=== PATIENT | female | born 1950 | race Caucasian/White ===

== ENCOUNTER 2017-03-14 08:29 | Inpatient (IN) | payer MEDICAID ==
[~2017-03-14] VITALS: Ht 142.2 cm; Wt 70.7 kg
[2017-03-14] MEDS ORDERED: SOD CHLORIDE 0.9% 1,000 ML IV STA (08:44)
[2017-03-14 09:08] LABS: ADD SCAN DIFF NO
[2017-03-14 09:10] LABS: ABNORMAL IP MESSAGE 1; BASOPHILS % 0.5 % (0.0-2.0); EOSINOPHILS % 0.3 % (0.0-7.0); HEMATOCRIT 29.4 % (37.0-47.0); HEMOGLOBIN 8.9 g/dl (12.0-16.0); LYMPHOCYTES # 0.3 10^3/ul (0.8-2.9); LYMPHOCYTES % 9.1 % (15.0-51.0); MEAN CORPUSCULAR HEMOGLOBIN 23.5 pg (29.0-33.0); MEAN CORPUSCULAR HGB CONC 30.3 g/dl (32.0-37.0); MEAN CORPUSCULAR VOLUME 77.6 fl (82.0-101.0); MONOCYTE # 0.3 10^3/ul (0.3-0.9); NEUTROPHIL # 3.1 10^3/ul (1.6-7.5); NEUTROPHILS % 82.6 % (39.0-77.0); PLATELET COUNT 108 10^3/UL (140-415); RED BLOOD COUNT 3.79 10^6/ul (4.20-5.40); RED CELL DISTRIBUTION WIDTH 21.4 % (11.5-14.5); WHITE BLOOD COUNT 3.7 10^3/ul (4.8-10.8)
[2017-03-14 09:29] LABS: INR 1.33; PARTIAL THROMBOPLASTIN TIME 36.9 Sec (25.0-35.0); PROTIME 16.6 Sec (12.2-14.2); PT RATIO 1.3
--- NOTE | 2017-03-14 09:35 | RADRPT ---
PROCEDURE: CT Brain without contrast. CLINICAL INDICATION: Altered mental status TECHNIQUE: Routine CT scan of the brain was performed on a high resolution multi detector scanner without intravenous contrast. One or more of the following dose reduction techniques were used: Auto mated exposure control; Adjustment of the mA and/or kV according to patient size; Use of iterative r econstruction technique. CTDI = 45 mGy. DLP = 720 mGy-cm. COMPARISON: No prior relevant examinations are available for comparison. FINDINGS: Hemorrhage: No evidence of intracranial hemorrhage. Acute ischemic changes: No evidence of acute ischemic changes. Mass effect/Midline shift: None. Parenchymal volume: Within normal limits for age. Ventricular system: Concordant with parenchymal volume. Chronic changes: There are multiple areas of low attenuation change within the supratentorial white matter most compatible with moderate chronic microvascular ischemic changes. Most inferior portion o f the left middle cranial fossa is outside of the field of view with possible small area of encephal omalacia involving the basal - anterior left temporal lobe. Atherosclerotic calcifications of the cavernous portions of both internal carotid arteries are prese nt. Extracranial soft tissues: Unremarkable. Calvarium: No fractures. 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 Mastoid air cells: Visualized mastoid air cells are clear. IMPRESSION: No acute intracranial abnormalities. Most inferior portion of the left middle cranial fossa is outside of the field of view with possible small area of encephalomalacia involving the basal - anterior left temporal lobe. Moderate chronic-appearing microvascular ischemic changes of the supratentorial white matter; MRI of the brain can be obtained for further evaluation if clinical suspicion of acute ischemic changes. 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 Recommend CT scan of the sinuses for further evaluation. RPTAT: AADD .Marco A Valverde MD, Date Time Electronically viewed and signed by .Marco A Valverde MD, MD on 03/14/2017 09:35 .B/
[2017-03-14 09:38] LABS: ALBUMIN 3.4 g/dl (3.3-4.9); ALBUMIN/GLOBULIN RATIO 0.7; BILIRUBIN,INDIRECT 1.3 mg/dl (0-1.1); BILIRUBIN,TOTAL 1.3 mg/dl (0.2-1.3); CALCIUM 8.6 mg/dl (8.4-10.2); CREATININE 0.99 mg/dl (0.44-1.00); POTASSIUM 4.6 mmol/L (3.5-5.1); TOTAL PROTEIN 8.2 g/dl (6.1-8.1)
--- NOTE | 2017-03-14 09:53 | RADRPT ---
PROCEDURE: XR Chest 1 View. CLINICAL INDICATION: Abnormal breath sounds, altered mental status. TECHNIQUE: AP view of the chest was obtained. COMPARISON: None. FINDINGS: The cardiomediastinal silhouette is within normal limits. The lungs are hypoinflated. Atelectasis i s identified in the left upper lobe and scattered throughout the right lung. No consolidations are i dentified. No pneumothorax is seen. Osseous structures are intact. IMPRESSION: Hypoinflated lungs. Atelectasis throughout the right lung and in the left upper lobe. RPTAT: AA .Geoffrey Frankel MD, Date Time Electronically viewed and signed by .Geoffrey Frankel MD, on 03/14/2017 09:52 .P/
[2017-03-14] MEDS ORDERED: FURO40TA4 PO (10:24)
[2017-03-14] MEDS ORDERED: LACT20SO2 PO (10:24)
[2017-03-14] MEDS ORDERED: LANT3I SC (10:25)
[2017-03-14] MEDS ORDERED: OMEP20CA16 PO (10:25)
[2017-03-14] MEDS ORDERED: SPIR100T31 PO (10:25)
[2017-03-14] MEDS ORDERED: SYN1 PO (10:26)
[2017-03-14] MEDS ORDERED: LORAZEPAM 2 MG INJ IV ONE ×2 (10:30→12:30)
[2017-03-14 10:31] LABS: ADD UMIC YES; UR ASCORBIC ACID NEGATIVE (NEGATIVE); UR BACTERIA FEW /HPF (NONE SEEN); UR BILIRUBIN (Dip) NEGATIVE (NEGATIVE); UR BLOOD (Dip) 2+ mg/dL (NEGATIVE); UR CLARITY CLEAR (CLEAR); UR COLOR YELLOW (YELLOW); UR GLUCOSE (Dip) NEGATIVE (NEGATIVE); UR KETONES (Dip) NEGATIVE (NEGATIVE); UR LEUKOCYTE ESTERASE (Dip) NEGATIVE Leu/ul (NEGATIVE); UR NITRITE (Dip) NEGATIVE (NEGATIVE); UR RBC 39 /HPF (0-5); UR TOTAL PROTEIN (Dip) NEGATIVE (NEGATIVE); UR UROBILINOGEN (Dip) NEGATIVE (NEGATIVE)
[2017-03-14 10:59] LABS: BARBITURATES Negative (NEGATIVE); BENZODIAZEPINES Negative (NEGATIVE); CANNABINOIDS Negative (NEGATIVE); COCAINE Negative (NEGATIVE); OPIATES Negative (NEGATIVE)
[2017-03-14] MEDS ORDERED: LACTULOSE 30ML CUP PO ONE (11:30)
[2017-03-14] MEDS ORDERED: SOD CHLORIDE 0.9% 1,000 ML IV SCH (11:55)
[2017-03-14] MEDS ORDERED: ACETAMINOPHEN 325 MG TAB PO PRN (12:00)
[2017-03-14] MEDS ORDERED: ONDANSETRON 4 MG INJ IV PRN ×2 (12:00→18:00)
--- NOTE | 2017-03-14 12:00 | ERA ---
ER Documentation Chief Complaint Date/Time DATE: 03/14/17 TIME: 11:56 Chief Complaint aloc from home, last since normal was last night before bedtime. HPI This is a 66-year-old female who was last seen normal last night at 10 PM. The patient's family states that she has liver cirrhosis numbness and has not been taking her lactulose and other medications like she supposed to be. Patient was found late this morning and altered mental status. Patient seemed confused and did not recognize her family. The family says this is happened before. Says she has been in relatively good health as of late besides her typical cirrhosis. Deny her having any fever vomiting diarrhea or other illness. ROS All systems reviewed and are negative except as per history of present illness. Medications Home Meds Reported Medications Levothyroxine Sodium* (Synthroid*) 100 Mcg Tablet, 100 MCG PO BEFORE BREAKFAST, #30 TAB 03/14/17 Insulin Glargine* (Lantus*) 100 Unit/Ml Soln, 10 UNIT SC QHS, #1 VIAL 03/14/17 Omeprazole* (Omeprazole*) 20 Mg Capsule.dr, 20 MG PO BID, #60 CAP 03/14/17 Spironolactone* (Spironolactone*) 100 Mg Tablet, 100 MG PO BID, TAB 03/14/17 Lactulose* (Lactulose*) 20 Gm/30 Ml Solution, 20 GM PO BID, ML 03/14/17 Furosemide* (Furosemide*) 40 Mg Tablet, 40 MG PO BID, TAB 03/14/17 Allergies Allergies: Coded Allergies: No Known Allergy (Unverified , 03/14/17) FmHx Unable to obtain due to mental status Physical Exam Vitals Vital Signs Date Time Temp Pulse Resp B/P Pulse Ox O2 Delivery O2 Flow Rate FiO2 03/14/17 11:30 88 18 101/62 100 Nasal Cannula 2.0 03/14/17 09:30 94 19 135/81 100 Room Air 03/14/17 08:39 97.5 88 20 174/138 95 Physical Exam Const: Well-developed, well-nourished Head: Atraumatic, normocephalic Eyes: Normal Conjunctiva, PERRLA, EOMI, normal sclera, no nystagmus ENT: Normal External Ears, Nose and Mouth, moist mucus membranes. Neck: Full range of motion. No meningismus, no lymphadenopathy. Resp: Clear to auscultation bilaterally, no wheezing, rhonchi, rales Cardio: Regular rate and rhythm, no murmurs, S1 S2 present Abd: Soft, non tender x 4, non, obese central core , normal bowel sounds, no guarding or rebound, no pulsitile abdominal masses or bruits Skin: No petechiae or rashes, no ecchymosis , no maculopapular rash Back: No midline or flank tenderness Ext: No cyanosis, or edema, FROM x 4, normal inspection, neurovascularly intact x 4 Neur: Awake and alert, somewhat combative does not follow commands STR 5 /5 x 4, sensation intact x 4, no focal findings, cerebellum intact Psych: Unable to obtain Result Diagram: 03/14/1784903/14/1750 Results 24 hrs Laboratory Tests Test 03/14/17 08:49 03/14/17 08:50 03/14/17 10:12 Bedside Glucose 221mg/dL White Blood Count 3.710^3/ul Red Blood Count 3.7910^6/ul Hemoglobin 8.9g/dl Hematocrit 29.4% Mean Corpuscular Volume 77.6fl Mean Corpuscular Hemoglobin 23.5pg Mean Corpuscular Hemoglobin Concent 30.3g/dl Red Cell Distribution Width 21.4% Platelet Count 52555^3/UL Mean Platelet Volume 10.0fl Neutrophils % 82.6% Lymphocytes % 9.1% Monocytes % 7.0% Eosinophils % 0.3% Basophils % 0.5% Nucleated Red Blood Cells % 0.0/100WBC Neutrophils # 3.110^3/ul Lymphocytes # 0.310^3/ul Monocytes # 0.310^3/ul Eosinophils # 0.010^3/ul Basophils # 0.010^3/ul Nucleated Red Blood Cells # 0.010^3/ul Prothrombin Time 16.6Sec Prothrombin Time Ratio 1.3 INR International Normalized Ratio 1.33 Activated Partial Thromboplast Time 36.9Sec Sodium Level 137mmol/L Potassium Level 4.6mmol/L Chloride Level 101mmol/L Carbon Dioxide Level 21mmol/L Anion Gap 20 Blood Urea Nitrogen 24mg/dl Creatinine 0.99mg/dl Glucose Level 214mg/dl Calcium Level 8.6mg/dl Total Bilirubin 1.3mg/dl Direct Bilirubin 0.00mg/dl Indirect Bilirubin 1.3mg/dl Aspartate Amino Transf (AST/SGOT) 53IU/L Alanine Aminotransferase (ALT/SGPT) 38IU/L Alkaline Phosphatase 340IU/L Ammonia 117umol/l Total Protein 8.2g/dl Albumin 3.4g/dl Globulin 4.80g/dl Albumin/Globulin Ratio 0.70 Urine Color YELLOW Urine Clarity CLEAR Urine pH 8.0 Urine Specific [place] 1.010 Urine Ketones NEGATIVEmg/dL Urine Nitrite NEGATIVEmg/dL Urine Bilirubin NEGATIVEmg/dL Urine Urobilinogen NEGATIVEmg/dL Urine Leukocyte Esterase NEGATIVELeu/ul Urine Microscopic RBC 39/HPF Urine Microscopic WBC 1/HPF Urine Bacteria FEW/HPF Urine Hemoglobin 2+mg/dL Urine Glucose NEGATIVEmg/dL Urine Total Protein NEGATIVEmg/dl Urine Opiates Screen Negative Urine Barbiturates Negative Urine Amphetamines Screen Negative Urine Benzodiazepines Screen Negative Urine Cocaine Screen Negative Urine Cannabinoids Negative Current Medications Medications (Trade) Dose Ordered Sig/Cirilo Route PRN Reason Start Time Stop Time Status Last Admin Dose Admin Sodium Chloride (NS) 1,000 ml @ 1,000 mls/hr Q1H STAT IV 03/14/17 08:44 03/14/17 09:43 DC 03/14/17 09:43 Lorazepam (Ativan) 0.5 mg ONCE ONCE IV 03/14/17 10:30 03/14/17 10:31 DC 03/14/17 10:17 Lactulose (Enulose) 20 gm ONCE ONCE PO 03/14/17 11:30 03/14/17 11:47 DC Procedures/MDM PROCEDURE: CT Brain without contrast. CLINICAL INDICATION: Altered mental status TECHNIQUE: Routine CT scan of the brain was performed on a high resolution multi detector scanner without intravenous contrast. One or more of the following dose reduction techniques were used: Automated exposure control; Adjustment of the mA and/or kV according to patient size; Use of iterative reconstruction technique. CTDI = 45 mGy. DLP = 720 mGy-cm. COMPARISON: No prior relevant examinations are available for comparison. FINDINGS: Hemorrhage: No evidence of intracranial hemorrhage. Acute ischemic changes: No evidence of acute ischemic changes. Mass effect/Midline shift: None. Parenchymal volume: Within normal limits for age. Ventricular system: Concordant with parenchymal volume. Chronic changes: There are multiple areas of low attenuation change within the supratentorial white matter most compatible with moderate chronic microvascular ischemic changes. Most inferior portion of the left middle cranial fossa is outside of the field of view with possible small area of encephalomalacia involving the basal - anterior left temporal lobe. Atherosclerotic calcifications of the cavernous portions of both internal carotid arteries are present. Extracranial soft tissues: Unremarkable. Calvarium: No fractures. 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 Mastoid air cells: Visualized mastoid air cells are clear. IMPRESSION: No acute intracranial abnormalities. Most inferior portion of the left middle cranial fossa is outside of the field of view with possible small area of encephalomalacia involving the basal - anterior left temporal lobe. Moderate chronic-appearing microvascular ischemic changes of the supratentorial white matter; MRI of the brain can be obtained for further evaluation if clinical suspicion of acute ischemic changes. 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 Recommend CT scan of the sinuses for further evaluation. RPTAT: AADD .Marco A Valverde MD, MD Date Time Electronically viewed and signed by .Marco A Valverde MD, MD on 03/14/2017 09:35 .B/ CC: ASHLI HURD DO PROCEDURE: XR Chest 1 View. CLINICAL INDICATION: Abnormal breath sounds, altered mental status. TECHNIQUE: AP view of the chest was obtained. COMPARISON: None. FINDINGS: The cardiomediastinal silhouette is within normal limits. The lungs are hypoinflated. Atelectasis is identified in the left upper lobe and scattered throughout the right lung. No consolidations are identified. No pneumothorax is seen. Osseous structures are intact. IMPRESSION: Hypoinflated lungs. Atelectasis throughout the right lung and in the left upper lobe. RPTAT: AA .Geoffrey Frankel MD, MD Date Time Electronically viewed and signed by .Geoffrey Frankel MD, on 03/14/2017 09:52 .P/ CC: ASHLI HURD DO Patient was found to have an elevated ammonia of 117. This is the cause of her altered mental status. Patient was given Ativan to calm her down. We will admit her to the hospital for further lactulose or neomycin therapy. Departure Diagnosis: Primary Impression: Hyperammonemia Condition: ASHLI Mendenhall DO Mar 14, 2017 12:00
--- NOTE | 2017-03-14 14:14 | RADRPT ---
PROCEDURE: XR Chest 1 View. CLINICAL INDICATION: Chest pain and trauma. TECHNIQUE: AP view of the chest was obtained. COMPARISON: March 14, 2017 at 09:30 a.m. FINDINGS: The cardiomediastinal silhouette is within normal limits. The lungs are hypoinflated. Elevation of the right hemidiaphragm is observed. Atelectasis is noted at the lung bases. No consolidations are identified. No pneumothorax is seen. Nasogastric tube has its distal end in the expected location o f the stomach. The osseous structures appear grossly intact. IMPRESSION: No visualized traumatic injury. Hypoinflated lungs with elevation of the right hemidiaphragm. Atelectasis at the lung bases. If there is high clinical suspicion for traumatic injury, further evaluation with CT should be consi dered. RPTAT: AA .Geoffrey Frankel MD, Date Time Electronically viewed and signed by .Geoffrey Frankel MD, on 03/14/2017 14:14 .P/
--- NOTE | 2017-03-14 14:26 | RADRPT ---
PROCEDURE: XR Chest. CLINICAL INDICATION: Assess NG tube placement. TECHNIQUE: Single frontal view of the chest was obtained. COMPARISON: None FINDINGS: The soft tissues are generous. An NG tube is positioned with its tip well distal to the GE junction in the stomach. There are degenerative osteophytes in the thoracic spine. The heart is upper limi ts of normal for size. The cardiomediastinal silhouette and hilar structures are normal. The pulmon sofiya vasculature is equilibrated. There is a left-sided aorta. The right diaphragm is elevated. The re is vascular crowding from the poor inspiration. The costophrenic angles are normal. IMPRESSION: 1. Satisfactory positioning of an NG tube distal to the GE junction. 2. Suboptimal inspiration with compressive atelectasis in the lungs. RPTAT:AAJJ Physician Selina Date Time Electronically viewed and signed by Physician Selina on 03/14/2017 14:25 GOSIA/
[2017-03-14 15:30] VITALS: TEMP 98
[2017-03-14 16:50] VITALS: Ht 142.2 cm; Wt 70.7 kg
[2017-03-14 16:54] VITALS: BP 110/58; PULSE 81; RESP 20
[2017-03-14] MEDS ORDERED: SOD CHLORIDE 0.45% 1,000 ML IV SCH (17:53)
--- NOTE | 2017-03-14 17:55 | HP ---
Date/Time of Note Date/Time of Note DATE: 03/14/17 TIME: 17:45 Assessment/Plan VTE Prophylaxis VTE Prophylaxis Intervention: SCD's Assessment/Plan Chief Complaint/Hosp Course 1. 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 2. Pancytopenia secondary to cirrhosis Monitor 3. Insulin-dependent diabetes NovoLog sliding scale 4. Hypothyroidism Resume home Synthroid Prophylaxis: SCDs Problems: HPI/ROS Admit Date/Time Admit Date/Time Mar 14, 2017 at 11:55 Hx of Present Illness Patient is 66-year-old female with a history of insulin-dependent diabetes and cirrhosis of idiopathic etiology but likely from TREJO and chronic pain medications, patient has history of refractory ascites and is status post TIPS 2 months ago at [facility]. Prior to TIPS procedure patient reportedly had no history of GI bleed and no history of hepatic encephalopathy. Since the procedure patient has been started on lactulose reportedly has been having 3-4 bowel movements a day. Of note patient's ascites just recently resolved. Patient reportedly began to become altered starting today and was brought to the ED for further evaluation. History is obtained by patient's granddaughter was bedside, patient lives with her son. ROS Constitutional: disoriented PMH/Family/Social Past Medical History Insulin-dependent diabetes, hypothyroidism and cirrhosis likely secondary to Trejo and chronic pain medications with refractory ascites status post TIPS procedure 2 months ago Past Surgical History History of hernia repair Family History Significant Family History: no pertinent family hx Social History Alcohol Use: none Smoking Status: Never smoker Drug Use: none Exam/Review of Systems Vital Signs Vitals Vital Signs Date Time Temp Pulse Resp B/P Pulse Ox O2 Delivery O2 Flow Rate FiO2 03/14/17 16:54 98.9 81 20 110/58 100 Room Air 03/14/17 11:30 2.0 Exam Psych: confusion Respiratory: clear to auscultation Cardiovascular: regular rate and rhythm Gastrointestinal: non-tender, soft, No distended Musculoskeletal: nl extremities to inspection Labs Result Diagram: 03/14/17 0850 03/14/17 0850 Medications Medications Current Medications Sodium Chloride (NS) 1,000 ml @ 80 mls/hr [id number] IV Last administered on 03/14t 12:18; Admin Dose 80 MLS/HR; Start 03/14/17 at 11:55; Stop 03/15/17 at 00: 24 BRYANNA MCFADDEN Mar 14, 2017 17:54
[2017-03-14] MEDS ORDERED: NACL 0.9% 3 ML SYG IV SCH (18:00)
[2017-03-14] MEDS ORDERED: morphine 2 MG INJ IV PRN (18:00)
[2017-03-14] MEDS ORDERED: GLUCAGON 1 MG INJ IM PRN (19:00)
[2017-03-14] MEDS ORDERED: DEXTROSE 50% 50 ML SYRINGE IV PRN ×2 (19:00)
[2017-03-14] MEDS ORDERED: GLUCOSE GEL 15 GRAM TUBE BUCCAL PRN (19:00)
[2017-03-14] MEDS ORDERED: GLUCOSE GEL 15 GRAM TUBE PO PRN ×2 (19:00)
[2017-03-14] MEDS: LACTULOSE 30ML CUP NGT SCH ×2 (19:13→23:34)
[2017-03-14] MEDS: FUROSEMIDE 20 MG INJ IV SCH (19:16)
[2017-03-14 19:27] VITALS: BP 110/52; PULSE 80; RESP 20
[2017-03-14 20:00] VITALS: PULSE 73; PULSE 78
[2017-03-14 20:30] VITALS: BP 108/55; PULSE 81; RESP 18
[2017-03-14 20:37] VITALS: PULSE 78
[2017-03-14] MEDS: INSULIN ASPART [NOVOLOG] 3 ML PEN SC SCH (21:00)
[2017-03-15] VITALS (10 sets, daily range): BP systolic 90–116; BP diastolic 53–69; PULSE 72–86; RESP 18–20
[2017-03-15] MEDS: INSULIN ASPART [NOVOLOG] 3 ML PEN SC SCH ×4 (01:00→12:07)
[2017-03-15] MEDS ORDERED: ACCU-CHEK XX SCH (02:00)
[2017-03-15] MEDS ORDERED: PANTOPRAZOLE 40 MG INJ IV SCH (06:00)
[2017-03-15] MEDS: FUROSEMIDE 20 MG INJ IV SCH (06:17)
[2017-03-15] MEDS: LACTULOSE 30ML CUP NGT SCH (06:17)
[2017-03-15 08:15] LABS: ADD SCAN DIFF NO
[2017-03-15 08:36] LABS: ABNORMAL IP MESSAGE 1; BASOPHILS % 0.6 % (0.0-2.0); EOSINOPHILS # 0.1 10^3/ul (0.0-0.5); EOSINOPHILS % 2.4 % (0.0-7.0); HEMATOCRIT 27.9 % (37.0-47.0); HEMOGLOBIN 8.3 g/dl (12.0-16.0); LYMPHOCYTES # 0.6 10^3/ul (0.8-2.9); LYMPHOCYTES % 16.4 % (15.0-51.0); MEAN CORPUSCULAR HEMOGLOBIN 23.6 pg (29.0-33.0); MEAN CORPUSCULAR HGB CONC 29.7 g/dl (32.0-37.0); MEAN CORPUSCULAR VOLUME 79.3 fl (82.0-101.0); MEAN PLATELET VOLUME 10.2 fl (7.4-10.4); MONOCYTE # 0.4 10^3/ul (0.3-0.9); MONOCYTES % 10.4 % (0.0-11.0); NEUTROPHIL # 2.4 10^3/ul (1.6-7.5); NEUTROPHILS % 69.9 % (39.0-77.0); PLATELET COUNT 103 10^3/UL (140-415); RED BLOOD COUNT 3.52 10^6/ul (4.20-5.40); RED CELL DISTRIBUTION WIDTH 21.3 % (11.5-14.5); WHITE BLOOD COUNT 3.4 10^3/ul (4.8-10.8)
[2017-03-15 08:42] LABS: CALCIUM 8.3 mg/dl (8.4-10.2); CREATININE 1.04 mg/dl (0.44-1.00); MAGNESIUM 1.7 mg/dl (1.7-2.5); PHOSPHORUS 3.3 mg/dl (2.5-4.9); POTASSIUM 4.1 mmol/L (3.5-5.1)
[2017-03-15] MEDS ORDERED: MAGNESIUM SULFATE 2 GM/50 ML 50 ML IVPB ONE (11:00)
--- NOTE | 2017-03-15 11:49 | PDOCDIS ---
Discharge Instructions CONDITION Patient Condition: Good HOME CARE INSTRUCTIONS: Diet Instructions: Reduced Sodium ACTIVITY: Activity Restrictions: No Restrictions FOLLOW UP/APPOINTMENTS Follow-up Plan F/U WITH YOUR PCP IN 1-2 WEEKS BRYANNA MCFADDEN Mar 15, 2017 11:48
[2017-03-15] MEDS ORDERED: LACT20SO2 PO (11:50)
[2017-03-15] MEDS ORDERED: LACTULOSE 30ML CUP PO SCH (13:00)
--- NOTE | 2017-03-15 15:39 | DS ---
Date/Time of Note Date/Time of Note DATE: 03/15/17 TIME: 15:35 Discharge Summary Admission/Discharge Info Admit Date/Time Mar 14, 2017 at 11:55 Discharge Date/Time March 15, 2017 Discharge Diagnosis 1. Hepatic encephalopathy secondary to cirrhosis likely from Trejo/chronic pain meds-resolved Patient advised to increase lactulose to 3 times daily and decrease protein intake 2. Pancytopenia secondary to cirrhosis-stable 3. Insulin-dependent diabetes-continue home regimen 4. Hypothyroidism-continue home Synthroid Patient Condition: Good Hospital Course Patient is 66-year-old female with a history of insulin-dependent diabetes and cirrhosis of idiopathic etiology but likely from TREJO and chronic pain medications, patient has history of refractory ascites and is status post TIPS 2 months ago at [facility]. Patient presents with hepatic encephalopathy, this was her first episode. Patient been taking lactulose twice daily and has been compliant with her medications. Patient has been on a regular diet and has also been consuming a protein shake. On admission patient' s ammonia was elevated and patient was obtunded, NG tube was placed the patient was given lactulose with resolution of the encephalopathy and significant improvement in the ammonia level. On day of discharge patient's rotation was back to baseline, her vitals and labs are stable as was her physical exam. Patient was advised to refrain from the protein shake as she is consuming regular amounts of meat in her diet, she was also advised to increase her lactulose to 3 times daily considering her recent history of TIPS. Patient had no acute complaints and the day of discharge. Home Meds Active Scripts Lactulose* (Lactulose*) 20 Gm/30 Ml Solution, 20 GM PO TID, #60 ML Prov:BRYANNA MCFADDEN 03/15/17 Reported Medications Levothyroxine Sodium* (Synthroid*) 100 Mcg Tablet, 100 MCG PO BEFORE BREAKFAST, #30 TAB 03/14/17 Insulin Glargine* (Lantus*) 100 Unit/Ml Soln, 10 UNIT SC QHS, #1 VIAL 03/14/17 Omeprazole* (Omeprazole*) 20 Mg Capsule.dr, 20 MG PO BID, #60 CAP 03/14/17 Spironolactone* (Spironolactone*) 100 Mg Tablet, 100 MG PO BID, TAB 03/14/17 Furosemide* (Furosemide*) 40 Mg Tablet, 40 MG PO BID, TAB 03/14/17 Follow-up Plan Follow with PCP 1-2 weeks Primary Care Provider Care Physician No Primary Time spent on discharge: > 30 minutes BRYANNA MCFADDEN Mar 15, 2017 15:39
== END 2017-03-15 15:45 | disposition home or self-care (01) | DRG 442 ==
LOC: E/R 08:29 → MS3 11:55 → MS4 20:20
PROVIDERS: ADMIT Internal Medicine; ATTEND Internal Medicine
PROC: 0DH673Z Insertion of Infusion Device into Stomach, Via Natural or Artificial Opening (ICD-10-PCS; principal; 2017-03-15)
DX: K71.10 Toxic liver disease with hepatic necrosis, without coma (principal); E72.20 Disorder of urea cycle metabolism, unspecified; D61.818 Other pancytopenia; R18.8 Other ascites; T50.995A Adverse effect of other drugs, medicaments and biological substances, initial encounter; K74.69 Other cirrhosis of liver; E11.9 Type 2 diabetes mellitus without complications; E03.9 Hypothyroidism, unspecified; G89.29 Other chronic pain; F45.42 Pain disorder with related psychological factors; Y92.009 Unspecified place in unspecified non-institutional (private) residence as the place of occurrence of the external cause; Z79.4 Long term (current) use of insulin
CPT/HCPCS: 36415; 70450; 71010; 80048; 80053; 80307; 81001; 82140; 82962; 83036; 83735; 84100; 85025; 85610; 85730; 93005; 96374; J1940; C9113; J1815; J2060; J3475; J7030

== ENCOUNTER 2017-03-28 16:40 | Inpatient (IN) | payer MEDICAID ==
[~2017-03-28] VITALS: Ht 154.9 cm; Wt 72.0 kg
[~2017-03-28 16:40] MED LIST: FURO40TA4 PO; LACT20SO2 PO; LANT3I SC; OMEP20CA16 PO; SPIR100T31 PO; SYN1 PO
--- NOTE | 2017-03-28 16:57 | ERA ---
ER Documentation Chief Complaint Date/Time DATE: 03/28/17 TIME: 16:57 Chief Complaint Pt altered for since this afternoon, dx with liver chirrosis. HPI The patient is a 76-year-old female, presenting to the ER because of altered level of consciousness the last couple hours prior to arrival.. He has similar symptoms previously and was discharged to the hospital 10 days ago for acute hepatic encephalopathy. The history is obtained from the grandchildren. There is no sign of trauma at home. She does not smoke or drink Past medical history: Cirrhosis, hypothyroidism, diabetes mellitus, hypertension Past surgical history: Hysterectomy, TIPS ROS All systems reviewed and are negative except as per history of present illness. Medications Home Meds Active Scripts Lactulose* (Lactulose*) 20 Gm/30 Ml Solution, 20 GM PO TID, #60 ML Prov:BRYANNA MCFADDEN 03/15/17 Reported Medications Levothyroxine Sodium* (Synthroid*) 100 Mcg Tablet, 100 MCG PO BEFORE BREAKFAST, #30 TAB 03/14/17 Insulin Glargine* (Lantus*) 100 Unit/Ml Soln, 10 UNIT SC QHS, #1 VIAL 03/14/17 Omeprazole* (Omeprazole*) 20 Mg Capsule.dr, 20 MG PO BID, #60 CAP 03/14/17 Spironolactone* (Spironolactone*) 100 Mg Tablet, 100 MG PO BID, TAB 03/14/17 Furosemide* (Furosemide*) 40 Mg Tablet, 40 MG PO BID, TAB 03/14/17 Allergies Allergies: Coded Allergies: No Known Allergy (Unverified , 03/28/17) PMhx/Soc History of Surgery: Yes (hernia repair, TOTAL HYSTERECTOMY) Anesthesia Reaction: No Hx Neurological Disorder: No Hx Respiratory Disorders: No Hx Cardiac Disorders: Yes (hnt) Hx Psychiatric Problems: No Hx Miscellaneous Medical Probl: Yes (dm, CERVICAL CA) Hx Alcohol Use: No Hx Substance Use: No Hx Tobacco Use: No Physical Exam Vitals Vital Signs Date Time Temp Pulse Resp B/P Pulse Ox O2 Delivery O2 Flow Rate FiO2 03/28/17 17:48 80 18 115/50 100 Room Air 03/28/17 16:46 97.5 82 18 103/53 99 Physical Exam Const: No acute distress. Somnolent but arousable Head: Atraumatic. Eyes: Normal Conjunctiva. ENT: Normal External Ears, Nose and Mouth. Neck: Full range of motion. No meningismus. Resp: Clear to auscultation bilaterally. Cardio: Regular rate and rhythm. Abd: Soft, non distended, normal bowel sounds, non tender. Skin: No petechiae or rashes. Back: No midline or flank tenderness. Ext: No cyanosis, or edema. Neur: Unable to perform due to her condition Psych: Unable to perform due to her condition. Result Diagram: 03/28/17 1715 03/28/17 1715 Results 24 hrs Laboratory Tests Test 03/28/17 17:05 03/28/17 17:15 03/28/17 17:34 Bedside Glucose 256mg/dL White Blood Count 5.010^3/ul Red Blood Count 3.3510^6/ul Hemoglobin 8.1g/dl Hematocrit 25.3% Mean Corpuscular Volume 75.5fl Mean Corpuscular Hemoglobin 24.2pg Mean Corpuscular Hemoglobin Concent 32.0g/dl Red Cell Distribution Width 20.0% Platelet Count 21712^3/UL Mean Platelet Volume 11.1fl Neutrophils % 84.0% Lymphocytes % 9.0% Monocytes % 5.0% Nucleated Red Blood Cells % 0.0/100WBC Neutrophils # 4.210^3/ul Band Neutrophils # 4.210^3/ul Lymphocytes # 0.510^3/ul Monocytes # 0.310^3/ul Prothrombin Time 16.7Sec Prothrombin Time Ratio 1.3 INR International Normalized Ratio 1.34 Activated Partial Thromboplast Time 24.6Sec Sodium Level 132mmol/L Potassium Level 5.2mmol/L Chloride Level 98mmol/L Carbon Dioxide Level 22mmol/L Anion Gap 17 Blood Urea Nitrogen 37mg/dl Creatinine 1.17mg/dl Glucose Level 251mg/dl Calcium Level 8.7mg/dl Total Bilirubin 1.6mg/dl Direct Bilirubin 0.00mg/dl Indirect Bilirubin 1.6mg/dl Aspartate Amino Transf (AST/SGOT) 54IU/L Alanine Aminotransferase (ALT/SGPT) 49IU/L Alkaline Phosphatase 407IU/L Ammonia 316umol/l Troponin I < 0.012ng/ml Total Protein 8.2g/dl Albumin 3.2g/dl Globulin 5.00g/dl Albumin/Globulin Ratio 0.64 Salicylates Level < 1.0mg/dl Acetaminophen Level < 10.0ug/ml Ethyl Alcohol Level < 10.0mg/dl Urine Color YELLOW Urine Clarity CLOUDY Urine pH 6.0 Urine Specific [place] 1.014 Urine Ketones NEGATIVEmg/dL Urine Nitrite NEGATIVEmg/dL Urine Bilirubin NEGATIVEmg/dL Urine Urobilinogen NEGATIVEmg/dL Urine Leukocyte Esterase 1+Kya/ul Urine Microscopic RBC 1/HPF Urine Microscopic WBC 6/HPF Urine Bacteria FEW/HPF Urine Hemoglobin NEGATIVEmg/dL Urine Glucose NEGATIVEmg/dL Urine Total Protein NEGATIVEmg/dl Urine Opiates Screen Negative Urine Barbiturates Negative Urine Amphetamines Screen Negative Urine Benzodiazepines Screen Negative Urine Cocaine Screen Negative Urine Cannabinoids Negative Current Medications Medications (Trade) Dose Ordered Sig/Cirilo Route PRN Reason Start Time Stop Time Status Last Admin Dose Admin Sodium Chloride (NS) 1,000 ml @ 1,000 mls/hr Q1H STAT IV 03/28/17 17:02 03/28/17 18:01 DC 03/28/17 17:47 Lactulose (Lactulose Enema) 100 ml ONCE ONCE RI 03/28/17 18:30 03/28/17 18:31 DC 03/28/17 19:59 IV Flush (NS 3 ml) 3 ml PER PROTOCOL IV 03/28/17 19:30 Ondansetron HCl (Zofran Inj) 4 mg Q6H PRN IV NAUSEA AND/OR VOMITING 03/28/17 19:30 Acetaminophen (Tylenol Tab) 650 mg Q6H PRN PO PAIN LEVEL 1-3 OR FEVER 03/28/17 19:30 Acetaminophen/ Hydrocodone Bitart (Power (5/325)) 1 tab Q6H PRN PO MODERATE PAIN LEVEL 4-6 03/28/17 19:30 Morphine Sulfate (morphine) 2 mg Q4H PRN IV SEVERE PAIN LEVEL 7-10 03/28/17 19:30 Docusate Sodium (Colace) 100 mg Q12H PRN PO CONSTIPATION 03/28/17 19:30 Magnesium Hydroxide (Milk Of Mag) 30 ml DAILY PRN PO CONSTIPATION 03/28/17 19:30 Sodium Biphosphate/ Sodium Phosphate (Fleet Enema) 133 ml DAILY PRN RI CONSTIPATION 03/28/17 19:30 Heparin Sodium (Porcine) (Heparin (5000 Units/0.5 ml)) 5,000 unit Q12 SC 03/28/17 21:00 Lorazepam (Ativan) 0.5 mg Q6H PRN IV ANXIETY 03/28/17 19:30 Albuterol/ Ipratropium (Duoneb) 3 ml Q4H RESP THERAPY PRN HHN SHORTNESS OF BREATH 03/28/17 19:30 Hydralazine HCl (Apresoline) 10 mg Q6H PRN IV ELEVATED BLOOD PRESSURE 03/28/17 19:30 Nitroglycerin (Nitroglycerin (Sl Tab) 0.4 Mg) 1 tab Q5M PRN SL ANGINA 03/28/17 19:30 Furosemide (Lasix) 40 mg BID DIURETICS PO 03/28/17 21:00 Insulin Glargine (Lantus) 10 unit QHS SC 03/28/17 21:00 UNV Levothyroxine Sodium (Synthroid) 100 mcg BEFORE BREAKFAST PO 03/29/17 07:00 Spironolactone (Aldactone) 100 mg BID PO 03/28/17 21:00 Pantoprazole (Protonix Tab) 40 mg BID@06,18 PO 03/28/17 21:00 Lactulose (Lactulose Enema) 100 ml Q6 RI 03/29/17 00:00 UNV Miscellaneous Information (* Miscellaneous Pharmacy Order) Discontinue current oral sulfonylur... ONCE ONCE XX 03/28/17 19:30 03/28/17 19:34 DC Diagnostic Test (Pha) (Accu-Chek) 1 ea 02 XX 03/29/17 02:00 Miscellaneous Information (* Miscellaneous Pharmacy Order) HYPOGLYCEMIA PROTOCOL w... ONCE ONCE XX 03/28/17 19:30 03/28/17 19:34 DC Insulin Aspart (Novolog Insulin Pen) NOVOLOG *MILD* ALGORI... Q4 SC 03/28/17 21:00 UNV Miscellaneous Information (* Miscellaneous Pharmacy Order) Discontinue all previ... ONCE ONCE XX 03/28/17 19:30 03/28/17 19:34 DC Miscellaneous Information 1 ea NOTE XX 03/28/17 20:00 Glucose (Glutose) 15 gm Q15M PRN PO DECREASED GLUCOSE 03/28/17 20:00 Glucose (Glutose) 22.5 gm Q15M PRN PO DECREASED GLUCOSE 03/28/17 20:00 Dextrose (D50w Syringe) 25 ml Q15M PRN IV DECREASED GLUCOSE 03/28/17 20:00 Dextrose (D50w Syringe) 50 ml Q15M PRN IV DECREASED GLUCOSE 03/28/17 20:00 Glucagon (Glucagen) 1 mg Q15M PRN IM DECREASED GLUCOSE 03/28/17 20:00 Glucose (Glutose) 15 gm Q15M PRN BUCCAL DECREASED GLUCOSE 03/28/17 20:00 Procedures/MDM [place] [id number] Radiology Main Line: [phone] DIAGNOSTIC IMAGING REPORT Patient: JOVANA NAILS : 1950 Age: 66 Sex: F MR #: [id number] DOS: 03/28/171701 Ordering MD: LETITIA CRAWFORD MD Location: E/R Room/Bed: PROCEDURE: XR Chest. CLINICAL INDICATION: Altered mental status. TECHNIQUE: AP view of the chest was obtained. COMPARISON: 03/14/2017 talked FINDINGS: The cardiomediastinal silhouette is within normal limits. The lungs are clear. No signs of pleural fluid or pneumothorax are seen. The osseous structures and soft tissues are unremarkable. IMPRESSION: 1. No evidence for active cardiopulmonary disease. RPTAT: HGAS .Heber Adhikari MD, MD Date Time Electronically viewed and signed by .Heber Adhikari MD, on 03/28/2017 18: 50 .S/ CC: LETITIA CRAWFORD MD [place] [id number] Radiology Main Line: [phone] DIAGNOSTIC IMAGING REPORT Patient: JOVANA NAILS : 1950 Age: 66 Sex: F MR #: [id number] DOS: 03/28/171701 Ordering MD: LETITIA CRAWFORD MD Location: E/R Room/Bed: PROCEDURE: CT Head without. CLINICAL INDICATION: Altered mental status. TECHNIQUE: The study was performed utilizing a multi-slice, multidetector CT scanner. Direct spiral 1 mm axial sections were obtained through the head without the use of intravenous contrast material. 1 or more of the following dose reduction techniques were utilized: Automated exposure control, adjustment of the mA and/or kV according to patient's size, iterative reconstruction technique. Coronal and sagittal reformations were obtained. The images were reviewed on a PACS workstation. RADIATION DOSE: CTDIvol: 42.2 mGy DLP: 720.2 mGy-cm COMPARISON: 03/14/2017 FINDINGS: There is no intracranial hemorrhage, extra-axial fluid collection, mass lesion, midline shift or hydrocephalus. There is stable mild prominence of the cerebral sulci, lateral and third ventricles. There is stable moderate patchy periventricular and subcortical white matter hypodensity. There is mild arteriosclerotic calcification of the parasellar internal carotid arteries. The melo-white matter differentiation is preserved. The basal cisterns are patent. The midline structures are intact. There is redemonstration of a slightly hyperdense fluid collection involving the left posterior ethmoid air cells, with thinning of the lateral and superior margins. This is most suggestive of an ethmoid mucocele, however CT of the sinuses is recommended for further evaluation. The orbits, calvarium and extracranial soft tissues are normal in appearance. The visualized paranasal sinuses, mastoid air cells and middle ear cavities are normally aerated. IMPRESSION: 1. No acute intracranial abnormality. No intracranial hemorrhage, extra-axial fluid collection, mass lesion or hydrocephalous. 2. Stable mild peripheral and central cerebral volume loss. 3. Stable moderate patchy periventricular and subcortical white matter hypodensity, likely related to chronic microangiopathic changes. 4. Stable expansile lesion involving the left ethmoid air cells with subtle hyperdensity, most suggestive of a ethmoid mucocele. There is thinning of the lateral and superior margins, with the osseous structures appear intact. CT of the paranasal sinuses is recommended for further evaluation. RPTAT: HGAS .Heber Adhikari MD, MD Date Time Electronically viewed and signed by .Heber Adhikari MD, on 03/28/2017 18: 47 .S/ CC: LETITIA CRAWFORD MD EKG: Read by emergency physician Rate/Rhythm: Normal Sinus Rhythm 79 beats/min QRS, ST, T-waves: No ST elevation, no T inversion Impression: Normal EKG MEDICAL MAKING DECISION: The patient is a 65-year-old female, presenting with acute encephalopathy, acute cystitis, acute dehydration. She want to do 1 L normal saline for acute dehydration, lactulose 100 mL enema due to acute Encephalopathy, Zosyn IV for acute cystitis The differential diagnoses considered include but are not limited to medication non-compliance, alcohol intoxication or withdrawal, drug intoxication or withdrawal, endocrine disorder, trauma, CVA, tumor, metabolic encephalopathy, septic encephalopathy. Departure Diagnosis: Primary Impression: Acute hepatic encephalopathy Additional Impressions: UTI (urinary tract infection) Dehydration Anemia Thrombocytopenia Condition: Stable Comments I discussed the findings with the patient. I discussed the patient with the on- call hospitalist Dr. Dawn at 7 PM. who was made aware of the lab, the treatment , the patient condition. The patient is admitted to [facility] LETITIA CRAWFORD MD Mar 28, 2017 16:57
[2017-03-28] MEDS ORDERED: SOD CHLORIDE 0.9% 1,000 ML IV STA (17:02)
[2017-03-28 17:41] LABS: ABNORMAL IP MESSAGE 1; HEMATOCRIT 25.3 % (37.0-47.0); HEMOGLOBIN 8.1 g/dl (12.0-16.0); MEAN CORPUSCULAR HEMOGLOBIN 24.2 pg (29.0-33.0); MEAN CORPUSCULAR VOLUME 75.5 fl (82.0-101.0); MEAN PLATELET VOLUME 11.1 fl (7.4-10.4); RED BLOOD COUNT 3.35 10^6/ul (4.20-5.40)
[2017-03-28 17:44] LABS: PLATELET COUNT 129 10^3/UL (140-415); POSITIVE DIFF @See below
[2017-03-28 18:13] LABS: LYMPHOCYTES # 0.5 10^3/ul (0.8-2.9); MONOCYTE # 0.3 10^3/ul (0.3-0.9); NEUTROPHIL # 4.2 10^3/ul (1.6-7.5)
[2017-03-28 18:29] LABS: INR 1.34; PROTIME 16.7 Sec (12.2-14.2); PT RATIO 1.3
[2017-03-28 18:30] LABS: PARTIAL THROMBOPLASTIN TIME 24.6 Sec (25.0-35.0)
[2017-03-28] MEDS ORDERED: LACTULOSE ENEMA 1,000 ML BTL PR ONE (18:30)
[2017-03-28 18:31] LABS: ALANINE AMINOTRANSFERASE 49 IU/L (13-69); ALBUMIN 3.2 g/dl (3.3-4.9); ALBUMIN/GLOBULIN RATIO 0.64; ALKALINE PHOSPHATASE 407 IU/L (42-121); ASPARTATE AMINO TRANSFERASE 54 IU/L (15-46); BILIRUBIN,INDIRECT 1.6 mg/dl (0-1.1); BILIRUBIN,TOTAL 1.6 mg/dl (0.2-1.3); BLOOD UREA NITROGEN 37 mg/dl (7-20); CALCIUM 8.7 mg/dl (8.4-10.2); CHLORIDE 98 mmol/L (97-110); CREATININE 1.17 mg/dl (0.44-1.00); GLUCOSE 251 mg/dl (70-220); POTASSIUM 5.2 mmol/L (3.5-5.1); SODIUM 132 mmol/L (135-144); TOTAL PROTEIN 8.2 g/dl (6.1-8.1)
[2017-03-28 18:33] LABS: ACETAMINOPHEN < 10.0 ug/ml (10.0-30.0); ETHANOL < 10.0 mg/dl; SALICYLATE < 1.0 mg/dl (5.0-30.0)
[2017-03-28 18:43] LABS: ANION GAP 17 (8-16); CARBON DIOXIDE 22 mmol/L (21-31); TROPONIN-I < 0.012 ng/ml (0.00-0.12)
--- NOTE | 2017-03-28 18:47 | RADRPT ---
PROCEDURE: CT Head without. CLINICAL INDICATION: Altered mental status. TECHNIQUE: The study was performed utilizing a multi-slice, multidetector CT scanner. Direct spira l 1 mm axial sections were obtained through the head without the use of intravenous contrast materia l. 1 or more of the following dose reduction techniques were utilized: Automated exposure control, adjustment of the mA and/or kV according to patient's size, iterative reconstruction technique. Co emily and sagittal reformations were obtained. The images were reviewed on a PACS workstation. RADIATION DOSE: CTDIvol: 42.2 mGyDLP: 720.2 mGy-cm COMPARISON: 03/14/2017 FINDINGS: There is no intracranial hemorrhage, extra-axial fluid collection, mass lesion, midline shift or hyd rocephalus. There is stable mild prominence of the cerebral sulci, lateral and third ventricles. T here is stable moderate patchy periventricular and subcortical white matter hypodensity. There is m ild arteriosclerotic calcification of the parasellar internal carotid arteries. The melo-white anne er differentiation is preserved. The basal cisterns are patent. The midline structures are intact. There is redemonstration of a slightly hyperdense fluid collection involving the left posterior et hmoid air cells, with thinning of the lateral and superior margins. This is most suggestive of an e thmoid mucocele, however CT of the sinuses is recommended for further evaluation. The orbits, saurabh rium and extracranial soft tissues are normal in appearance. The visualized paranasal sinuses, masto id air cells and middle ear cavities are normally aerated. IMPRESSION: 1. No acute intracranial abnormality. No intracranial hemorrhage, extra-axial fluid collection, ma ss lesion or hydrocephalous. 2. Stable mild peripheral and central cerebral volume loss. 3. Stable moderate patchy periventricular and subcortical white matter hypodensity, likely related to chronic microangiopathic changes. 4. Stable expansile lesion involving the left ethmoid air cells with subtle hyperdensity, most sugg estive of a ethmoid mucocele. There is thinning of the lateral and superior margins, with the osseo us structures appear intact. CT of the paranasal sinuses is recommended for further evaluation. RPTAT: HGAS .Heber Adhikari MD, MD Date Time Electronically viewed and signed by .Heber Adhikari MD, on 03/28/2017 18:47 .S/
--- NOTE | 2017-03-28 18:50 | RADRPT ---
PROCEDURE: XR Chest. CLINICAL INDICATION: Altered mental status. TECHNIQUE: AP view of the chest was obtained. COMPARISON: 03/14/2017 talked FINDINGS: The cardiomediastinal silhouette is within normal limits. The lungs are clear. No signs of pleural f luid or pneumothorax are seen. The osseous structures and soft tissues are unremarkable. IMPRESSION: 1. No evidence for active cardiopulmonary disease. RPTAT: HGAS .Heber Adhikari MD, MD Date Time Electronically viewed and signed by .Heber Adhikari MD, on 03/28/2017 18:50 .S/
[2017-03-28 19:12] LABS: BARBITURATES Negative (NEGATIVE); BENZODIAZEPINES Negative (NEGATIVE); CANNABINOIDS Negative (NEGATIVE); COCAINE Negative (NEGATIVE); OPIATES Negative (NEGATIVE)
[2017-03-28] MEDS ORDERED: ACETAMINOPHEN 325 MG TAB PO PRN (19:30)
[2017-03-28] MEDS ORDERED: NACL 0.9% 3 ML SYG IV SCH (19:30)
[2017-03-28] MEDS ORDERED: MAGNESIUM HYDROXIDE 30ML CUP PO PRN (19:30)
[2017-03-28] MEDS ORDERED: LORAZEPAM 2 MG INJ IV PRN (19:30)
[2017-03-28] MEDS ORDERED: ALBUTEROL/IPRATROPIUM (NEB) 3 ML AMP HHN PRN (19:30)
[2017-03-28] MEDS ORDERED: HYDROCODONE/APAP (5/325) TAB PO PRN (19:30)
[2017-03-28] MEDS ORDERED: NA PHOSPHATE/BIPHOS 133 ML ENEMA PR PRN (19:30)
[2017-03-28] MEDS ORDERED: hydrALAzine 20 MG INJ IV PRN (19:30)
[2017-03-28] MEDS ORDERED: ONDANSETRON 4 MG INJ IV PRN (19:30)
[2017-03-28] MEDS ORDERED: DOCUSATE SODIUM 100 MG CAP PO PRN (19:30)
[2017-03-28] MEDS ORDERED: NITROGLYCERIN (SL) 0.4 MG TAB SL PRN (19:30)
[2017-03-28] MEDS ORDERED: morphine 4 MG/ML VIAL IV PRN (19:30)
[2017-03-28] MEDS ORDERED: DEXTROSE 50% 50 ML SYRINGE IV PRN ×2 (20:00)
[2017-03-28] MEDS ORDERED: GLUCAGON 1 MG INJ IM PRN (20:00)
[2017-03-28] MEDS ORDERED: GLUCOSE GEL 15 GRAM TUBE BUCCAL PRN (20:00)
[2017-03-28] MEDS ORDERED: GLUCOSE GEL 15 GRAM TUBE PO PRN ×2 (20:00)
[2017-03-28 20:06] LABS: ADD UMIC YES; UR ASCORBIC ACID 20 mg/dL (NEGATIVE); UR BACTERIA FEW /HPF (NONE SEEN); UR BILIRUBIN (Dip) NEGATIVE (NEGATIVE); UR BLOOD (Dip) NEGATIVE (NEGATIVE); UR CLARITY CLOUDY (CLEAR); UR COLOR YELLOW (YELLOW); UR GLUCOSE (Dip) NEGATIVE (NEGATIVE); UR KETONES (Dip) NEGATIVE (NEGATIVE); UR LEUKOCYTE ESTERASE (Dip) 1+ Leu/ul (NEGATIVE); UR NITRITE (Dip) NEGATIVE (NEGATIVE); UR RBC 1 /HPF (0-5); UR SPECIFIC GRAVITY (Dip) 1.014 (1.003-1.030); UR TOTAL PROTEIN (Dip) NEGATIVE (NEGATIVE); UR UROBILINOGEN (Dip) NEGATIVE (NEGATIVE)
[2017-03-28] MEDS ORDERED: PANTOPRAZOLE (EC) 40 MG TAB PO SCH (21:00)
[2017-03-28] MEDS ORDERED: PIPER-TAZO 3.375 GM IV (PMX) 100 ML IVPB ONE (21:00)
[2017-03-28] MEDS ORDERED: FUROSEMIDE 40 MG TAB PO SCH (21:00)
[2017-03-28] MEDS ORDERED: INSULIN GLARGINE [LANtus] 3 ML PEN SC SCH (21:00)
[2017-03-28 22:22] VITALS: PULSE 77
[2017-03-28 22:45] VITALS: BP 110/65; RESP 22
[2017-03-28] MEDS: HEPARIN 5,000 UNIT/0.5 ML VIAL SC SCH (23:18)
[2017-03-28] MEDS: SPIRONOLACTONE 50 MG TAB PO SCH (23:18)
[2017-03-28] MEDS: INSULIN ASPART [NOVOLOG] 3 ML PEN SC SCH (23:41)
[2017-03-29] VITALS (8 sets, daily range): BP systolic 94–125; BP diastolic 52–69; PULSE 75–96; RESP 18–20; Ht 154.9 cm; Wt 72.0 kg
[2017-03-29] MEDS ORDERED: FUROSEMIDE 20 MG INJ IV SCH
[2017-03-29] MEDS: INSULIN ASPART [NOVOLOG] 3 ML PEN SC SCH ×4 (01:00→12:43)
[2017-03-29] MEDS ORDERED: ACCU-CHEK XX SCH (02:00)
[2017-03-29] MEDS: LACTULOSE ENEMA 1,000 ML BTL PR SCH ×2 (05:11)
[2017-03-29] MEDS ORDERED: PANTOPRAZOLE 40 MG INJ IV SCH (06:00)
[2017-03-29] MEDS ORDERED: LEVOTHYROXINE 100 MCG TAB PO SCH (07:00)
[2017-03-29 08:17] LABS: BASOPHILS % 0.4 % (0.0-2.0); EOSINOPHILS # 0.1 10^3/ul (0.0-0.5); EOSINOPHILS % 1.4 % (0.0-7.0); HEMATOCRIT 24.9 % (37.0-47.0); HEMOGLOBIN 7.5 g/dl (12.0-16.0); LYMPHOCYTES # 0.7 10^3/ul (0.8-2.9); LYMPHOCYTES % 12.7 % (15.0-51.0); MEAN CORPUSCULAR HEMOGLOBIN 23.6 pg (29.0-33.0); MEAN CORPUSCULAR HGB CONC 30.1 g/dl (32.0-37.0); MEAN CORPUSCULAR VOLUME 78.3 fl (82.0-101.0); MEAN PLATELET VOLUME 11.1 fl (7.4-10.4); MONOCYTE # 0.5 10^3/ul (0.3-0.9); MONOCYTES % 9.5 % (0.0-11.0); NEUTROPHIL # 4.2 10^3/ul (1.6-7.5); NEUTROPHILS % 75.6 % (39.0-77.0); PLATELET COUNT 109 10^3/UL (140-415); RED BLOOD COUNT 3.18 10^6/ul (4.20-5.40); RED CELL DISTRIBUTION WIDTH 20.3 % (11.5-14.5); WHITE BLOOD COUNT 5.6 10^3/ul (4.8-10.8)
[2017-03-29 08:36] LABS: CHOL/HDL RATIO 3.5 RATIO
[2017-03-29 08:45] LABS: CALCIUM 8.4 mg/dl (8.4-10.2); CREATININE 1.11 mg/dl (0.44-1.00); MAGNESIUM 2.1 mg/dl (1.7-2.5); PHOSPHORUS 3.9 mg/dl (2.5-4.9); POTASSIUM 4.2 mmol/L (3.5-5.1)
[2017-03-29 09:07] LABS: THYROID STIMULATING HORMONE 1.51 MIU/L (0.465-4.680)
[2017-03-29] MEDS: SPIRONOLACTONE 50 MG TAB PO SCH (09:12)
[2017-03-29] MEDS: HEPARIN 5,000 UNIT/0.5 ML VIAL SC SCH (09:19)
--- NOTE | 2017-03-29 09:33 | HP ---
Date/Time of Note Date/Time of Note DATE: 03/29/17 TIME: 09:18 Assessment/Plan VTE Prophylaxis VTE Prophylaxis Intervention: SCD's Lines/Catheters Urinary Cath still in place: Yes Assessment/Plan Assessment/Plan 1. Altered [place] 2/2 Hepatic Encephalopathy - Head CT neg for acute findings - Lactulose and Rifaximin 2. 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 Microcytic Anemia - Will order FOBT and check iron panel 4. Thrombocytopenia: 2/2 ESLD - monitor for now and transfuse as needed 5. MARIA EUGENIA - will start with gentle hydration - Nephrology consult and renal u/s as needed 5. Electrolyte Abnormalities - correct as needed 6. DM with hyperglycemia - Adjust Insulin as needed 7. Hypothyroidism - cont Synthroid 8. Hx of Cervical Cancer - f/u as outpt for periodic surveillance imaging HPI/ROS Admit Date/Time Admit Date/Time Mar 28, 2017 at 19:09 Hx of Present Illness Patient is 66-year-old female with a history of Hypothyroidism, Type I diabetes , cervical ca and cryptogenic decompensated Liver cirrhosis with hx of refractory ascites s/p TIPS few months ago at [facility]. Patient presented to ER for altered mentation. History is obtained from daughter who was at bedside. She said, she spoke with her mother in the afternoon and noted that she sounded confused. Patient was admitted here 2 weeks ago for hepatic Encephalopathy, which resolved prior to discharge. According to daughter, pt is complaint with lactulose and has been having 2-4 BM per day. Note however that they don't leave together . PMH/Family/Social Past Medical History Liver cirrhosis Diabetes Social History Smoking Status: Never smoker Exam/Review of Systems Vital Signs Vitals Vital Signs Date Time Temp Pulse Resp B/P Pulse Ox O2 Delivery O2 Flow Rate FiO2 03/29/17 08:20 97.9 82 18 104/54 100 03/28/17 21:44 Room Air Intake and Output 03/28/17 03/28/17 03/29/17 15:00 23:00 07:00 Intake Total 50 ml Balance 50 ml Exam Constitutional: other (appears lethargic, not fully oriented) Head: atraumatic, normocephalic Eyes: PERRL Respiratory: clear to auscultation Cardiovascular: nl pulses, regular rate and rhythm Gastrointestinal: soft, tender Extremities: normal pulses Labs Result Diagram: 03/29/17 0745 03/29/17 0749 Medications Medications Current Medications Ondansetron HCl (Zofran Inj) 4 mg Q6H PRN IV NAUSEA AND/OR VOMITING; Start at 19:30 Acetaminophen (Tylenol Tab) 650 mg Q6H PRN PO PAIN LEVEL 1-3 OR FEVER; Start at 19:30 Acetaminophen/ Hydrocodone Bitart ([place] (5/325)) 1 tab Q6H PRN PO MODERATE PAIN LEVEL 4-6; Start 03/28/17 at 19:30 Morphine Sulfate (morphine) 2 mg Q4H PRN IV SEVERE PAIN LEVEL 7-10; Start 03/28 at 19:30 Docusate Sodium (Colace) 100 mg Q12H PRN PO CONSTIPATION; Start 03/28/17 at 19: 30 Magnesium Hydroxide (Milk Of Mag) 30 ml DAILY PRN PO CONSTIPATION; Start at 19:30 Sodium Biphosphate/ Sodium Phosphate (Fleet Enema) 133 ml DAILY PRN [place] CONSTIPATION; Start 03/28/17 at 19:30 Heparin Sodium (Porcine) (Heparin (5000 Units/0.5 ml)) 5,000 unit Q12 SC Last administered on 03/28/17 23:18; Admin Dose 5,000 UNIT; Start 03/28/17 at 21:00 Lorazepam (Ativan) 0.5 mg Q6H PRN IV ANXIETY Last administered on 03/29/17 01: 52; Admin Dose 0.5 MG; Start 03/28/17 at 19:30 Hydralazine HCl (Apresoline) 10 mg Q6H PRN IV ELEVATED BLOOD PRESSURE; Start at 19:30 Nitroglycerin (Nitroglycerin (Sl Tab) 0.4 Mg) 1 tab Q5M PRN SL ANGINA; Start at 19:30 Insulin Glargine (Lantus) 10 unit QHS SC ; Start 03/28/17 at 21:00 Spironolactone (Aldactone) 100 mg BID PO ; Start 03/28/17 at 21:00 Lactulose (Lactulose Enema) 100 ml Q6 VT Last administered on 03/29/17 05:11; Admin Dose 100 ML; Start 03/29/17 at 00:00 Diagnostic Test (Pha) (Accu-Chek) 1 ea 02 XX ; Start 03/29/17 at 02:00 Insulin Aspart (Novolog Insulin Pen) NOVOLOG *MILD* ALGORI... Q4 SC ; Start at 21:00 Miscellaneous Information 1 ea NOTE XX ; Start 03/28/17 at 20:00 Glucose (Glutose) 15 gm Q15M PRN PO DECREASED GLUCOSE; Start 03/28/17 at 20:00 Glucose (Glutose) 22.5 gm Q15M PRN PO DECREASED GLUCOSE; Start 03/28/17 at 20: 00 Dextrose (D50w Syringe) 25 ml Q15M PRN IV DECREASED GLUCOSE; Start 03/28/17 at 20:00 Dextrose (D50w Syringe) 50 ml Q15M PRN IV DECREASED GLUCOSE; Start 03/28/17 at 20:00 Glucagon (Glucagen) 1 mg Q15M PRN IM DECREASED GLUCOSE; Start 03/28/17 at 20:00 Glucose (Glutose) 15 gm Q15M PRN BUCCAL DECREASED GLUCOSE; Start 03/28/17 at 20 :00 Pantoprazole (Protonix Iv) 40 mg BID@06,18 IV Last administered on 03/29/17t 05: 15; Admin Dose 40 MG; Start 03/29/17 at 06:00 LEXIS VARGAS MD Mar 29, 2017 09:31
[2017-03-29] MEDS ORDERED: RIFAXIMIN 550 MG TAB PO SCH (11:00)
[2017-03-29] MEDS ORDERED: LACTULOSE 30ML CUP PO SCH (14:00)
--- NOTE | 2017-03-29 16:47 | PDOCDIS ---
Discharge Instructions CONDITION Patient Condition: Good HOME CARE INSTRUCTIONS: Special Diet: Okay to have protein but please decrease quantity ACTIVITY: Activity Restrictions: No Restrictions FOLLOW UP/APPOINTMENTS Follow-up Plan Follow-up with PCP 1-2 weeks BRYANNA MCFADDEN Mar 29, 2017 16:47
--- NOTE | 2017-03-29 17:01 | DS ---
Date/Time of Note Date/Time of Note DATE: 03/29/17 TIME: 16:48 Discharge Summary Admission/Discharge Info Admit Date/Time Mar 28, 2017 at 19:09 Discharge Date/Time March 29, 2017 Discharge Diagnosis 1. Altered [place] 2/2 Hepatic Encephalopathy-resolved -Continue home lactulose, of note patient having 5 bowel movements per day and etiology of repeated episodes of hepatic encephalopathy is secondary to having had TIPS procedure and continuing a high protein diet, recommendation was to decrease protein intake 2. 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 Microcytic Anemia secondary to cirrhosis 4. Thrombocytopenia: 2/2 cirrhosis 5. MARIA EUGENIA secondary to dehydration from lactulose induced diarrhea-improved 6. DM with hyperglycemia-stable with an A1c at 6.7 -Continue home regimen 7. Hypothyroidism - cont Synthroid 8. Hx of Cervical Cancer - f/u as outpt for periodic surveillance imaging Patient Condition: Good Hx of Present Illness Hospital Course Patient is 66-year-old female with a history of Hypothyroidism, Type I diabetes , cervical ca and cryptogenic decompensated Liver cirrhosis with hx of refractory ascites s/p TIPS few months ago at [facility]. Patient presented to ER for altered mentation. Patient was admitted with hepatic encephalopathy and was given lactulose with resolution of encephalopathy and elevated ammonia level. Patient was started on a diet which she tolerated. Patient mentation was back to baseline, of note her A1c was stable at 6.7 although she was hyperglycemic in house likely secondary to stress. Patient has some mild elevation of creatinine likely secondary to dehydration from lactulose induced diarrhea. Patient's diet was discussed and appears that she is continuing to eat meat as well as is consuming a protein shake daily. Patient family was advised that she needs to decrease her protein intake as she had a TIPS procedure cannot tolerate this quantity of protein. Patient's lactulose dose was felt to be appropriate as she was having on average 5 bowel movements a day hence there is no need to increase her lactulose dose or frequency. Patient is felt to be stable for discharge on the day of discharge patient's vitals, labs and physical exam stable. Patient had no acute complaints and questions are answered. Home Meds Active Scripts Lactulose* (Lactulose*) 20 Gm/30 Ml Solution, 20 GM PO TID, #60 ML Prov:BRYANNA MCFADDEN 03/15/17 Reported Medications Levothyroxine Sodium* (Synthroid*) 100 Mcg Tablet, 100 MCG PO BEFORE BREAKFAST, #30 TAB 03/14/17 Insulin Glargine* (Lantus*) 100 Unit/Ml Soln, 10 UNIT SC QHS, #1 VIAL 03/14/17 Omeprazole* (Omeprazole*) 20 Mg Capsule.dr, 20 MG PO BID, #60 CAP 03/14/17 Spironolactone* (Spironolactone*) 100 Mg Tablet, 100 MG PO BID, TAB 03/14/17 Furosemide* (Furosemide*) 40 Mg Tablet, 40 MG PO BID, TAB 03/14/17 Follow-up Plan Follow with PCP in 1-2 weeks Primary Care Provider Care Physician No Primary Time spent on discharge: > 30 minutes BRYANNA MCFADDEN Mar 29, 2017 17:00
[2017-03-29] MEDS ORDERED: INSULIN ASPART [NOVOLOG] 3 ML PEN SC SCH (17:35)
== END 2017-03-29 18:28 | disposition home or self-care (01) | DRG 442 ==
LOC: E/R 16:40 → MS4 19:09
PROVIDERS: ADMIT Hospitalist; ATTEND Hospitalist
DX: K72.90 Hepatic failure, unspecified without coma (principal); N17.9 Acute kidney failure, unspecified; D69.59 Other secondary thrombocytopenia; E10.65 Type 1 diabetes mellitus with hyperglycemia; E86.0 Dehydration; K74.69 Other cirrhosis of liver; D50.9 Iron deficiency anemia, unspecified; E03.9 Hypothyroidism, unspecified; Z85.41 Personal history of malignant neoplasm of cervix uteri; R19.7 Diarrhea, unspecified; T47.3X5A Adverse effect of saline and osmotic laxatives, initial encounter
CPT/HCPCS: 36415; 70450; 71010; 80048; 80053; 80061; 80306; 80307; 81001; 82140; 82270; 82962; 83036; 83735; 84100; 84439; 84443; 84484; 85025; 85610; 85730; 87081; 87086; 93005; 96374; J1940; J1644; J1815; J2060; J2543; J7030; P9612